=== PATIENT | female | born 1980 | race Caucasian/White ===

== ENCOUNTER 2016-09-29 10:41 | Emergency (ER) | payer MEDICAID ==
[~2016-09-29] VITALS: Ht 165.1 cm; Wt 68.0 kg
[~2016-09-29 10:41] MED LIST: BUSPAR5 MG PO; NAPROSYN500 MG PO; ZOVIRAX200 MG PO
== END 2016-09-29 13:00 | disposition short-term general hospital (02) ==
LOC: ER 10:41
DX: R51 Headache (principal)
CPT/HCPCS: J1885; J2550

== ENCOUNTER → 2016-12-13 | Outpatient (CLI) | payer MEDICAID ==
[~2016-12-13] MED LIST changes: +XANAX0.5 M1 PO
== END | disposition short-term general hospital (02) ==
LOC: CLORTH 09:24
DX: M25.562 Pain in left knee (principal); G89.29 Other chronic pain

== ENCOUNTER 2016-12-21 09:08 | Emergency (ER) | payer MEDICAID ==
[~2016-12-21] VITALS: Ht 165.1 cm; Wt 69.4 kg
[~2016-12-21 09:08] MED LIST changes: -XANAX0.5 M1 PO
== END 2016-12-21 10:30 | disposition short-term general hospital (02) ==
LOC: ER 09:08
DX: G43.909 Migraine, unspecified, not intractable, without status migrainosus (principal)
CPT/HCPCS: J1885; J2765

== ENCOUNTER 2016-12-30 17:25 | Emergency (ER) | payer MEDICAID ==
[~2016-12-30] VITALS: Ht 165.1 cm; Wt 69.4 kg
[2016-12-30] MEDS ORDERED: XANAX0.5 M1 PO (19:05)
== END 2016-12-30 20:35 | disposition short-term general hospital (02) ==
LOC: ER 17:25
DX: K59.00 Constipation, unspecified (principal); F41.9 Anxiety disorder, unspecified; Z79.899 Other long term (current) drug therapy; Z98.51 Tubal ligation status